=== PATIENT | male | born 1985 | race Caucasian/White ===

== ENCOUNTER 2020-05-08 10:28 | Day surgery (SDC) | payer BC ==
[~2020-05-08 10:28] MED LIST: Midazolam 1 MG/ML 2 ML SDV ONE; Propofol 200 MG/20 ML SDV ONE
[2020-05-08] MEDS ORDERED: Lactated Ringers 1,000 ML IV SCH (10:30)
[2020-05-08] MEDS ORDERED: Sodium Chloride 0.9% 10 ML Syringe FLUSH PRN (10:30)
[2020-05-08] MEDS ORDERED: Glycopyrrolate 0.2 MG/ML SDV ONE ×2 (12:04→12:24)
[2020-05-08] MEDS ORDERED: Propofol 200 MG/20 ML SDV ONE (12:24)
[2020-05-08] MEDS ORDERED: Midazolam 1 MG/ML 2 ML SDV ONE (12:24)
[2020-05-08] MEDS ORDERED: Lidocaine 2% 5 ML SDV ONE (12:24)
--- NOTE | 2020-05-08 12:25 | PCM.OPNOTE ---
- General Post-Op/Procedure Note Date of Surgery/Procedure: 05/08/20 Operative Procedure(s): EGD with Bx Findings: Normal Pre Op Diagnosis: Epigastric Abd pain Post-Op Diagnosis: Same Anesthesia Technique: MAC Primary Surgeon: Uday Mike Anesthesia Provider: Jasmine IRVIN in mLs: 0 Complications: None Condition: Good
--- NOTE | 2020-05-08 14:53 | OR ---
Date of Procedure: 05/08/2020 PREOPERATIVE DIAGNOSIS: Epigastric abdominal pain. POSTOPERATIVE DIAGNOSIS: Normal EGD. PROCEDURE: EGD with biopsy. ANESTHESIA: MAC. PROCEDURE IN DETAIL: Patient was brought to the procedure room where he was placed on his left side and IV sedation administered. Oral bite block was placed and the upper endoscope advanced into the esophagus under direct vision without difficulty. Vocal cords were viewed and were normal. Scope was advanced to the third portion of the duodenum. Duodenum and pylorus were normal. Antrum and body of the stomach were normal. Retroflexion reveals a normal-appearing fundus. Squamocolumnar junction is normal. There was no evidence of reflux esophagitis. I did take two biopsies from the antrum to check for Helicobacter pylori because of his symptoms. Air was removed from the stomach and the scope withdrawn through the remaining esophagus which appears normal. The patient tolerated the procedure well and returned to recovery in stable condition. I will have the patient remain on his omeprazole and contact him with the biopsy results when they return. BERTA BRENNAN MD /[id number]
== END 2020-05-08 13:35 | disposition home or self-care (01) ==
LOC: LL.SDS 10:28
PROVIDERS: ATTEND Surgery
DX: K31.89 Other diseases of stomach and duodenum (principal); J45.909 Unspecified asthma, uncomplicated; Z01.812 Encounter for preprocedural laboratory examination; Z98.890 Other specified postprocedural states; Z20.828 Contact with and (suspected) exposure to other viral communicable diseases
CPT/HCPCS: 00731; J2001; J2250; J2704; J3490; J7120; U0002

== ENCOUNTER 2021-07-20 09:00 | Emergency (ER) | payer BC ==
[2021-07-20] MEDS ORDERED: Sodium Chloride 0.9% 10 ML Syringe FLUSH PRN (09:14)
[2021-07-20] MEDS ORDERED: Sodium Chloride 0.9% 1,000 ML IV SCH ×2 (09:15→10:15)
--- NOTE | 2021-07-20 09:48 | EDM.PDOC ---
ED HPI GENERAL MEDICAL PROBLEM - General Chief Complaint: Respiratory Problem Stated Complaint: short of breath Time Seen by Provider: 07/20/21 09:00 Source of Information: Reports: Patient, Family History Limitations: Reports: No Limitations - History of Present Illness INITIAL COMMENTS - FREE TEXT/NARRATIVE: Patient presents to the ED for increasing shortness of breath. According to his spouse, he has a history of reactive airway disease and has nebulizers at home for this, has environmental allergies. He has been struggling with a sinus infection for a long time. Documented ct results of chronic sinusitis and possible polyps. Saw his PCP mid april to discuss this problem. had a covid test that was negative. He asked to be tested in the nares for MRSA as a po ssibility of his sinus problems. It was positive, he was started on Bactrim for 10 days. He was then started on another course of bactrim. He states he was doing ok, but still with sinus congestion and loss of smell chronically. In the last 24 hours he has become markedly short of breath, using his nebulizer more, has a headache and feels unwell. He is not vaccinated for influenza or covid 19. He did 4 albuterol nebulizers prior to coming, they did not help. O2 sats at triage were 85% on room air. - Related Data Allergies Allergy/AdvReac Type Severity Reaction Status Date / Time No Known Allergies Allergy Verified 07/20/21 09:01 Home Meds: Home Meds Albuterol [Proventil HFA] 2 puff INH Q4H PRN #1 ea 07/20/21 [Rx] Albuterol [Proventil Neb Soln] 1.25 mg NEB Q4HRRT #30 ml 07/20/21 [Rx] Albuterol [Ventolin HFA] 1 - 2 spray INH Q4HR PRN 07/20/21 [History] Azelastine HCl 2 spray NS BID 07/20/21 [History] Azithromycin 250 mg PO DAILY #4 tablet 07/20/21 [Rx] Doxycycline [Vibra-Tabs] 100 mg PO Q12HR #20 tab 07/20/21 [Rx] Fluticasone/Salmeterol [Advair 500-50] 1 puff INH BID 07/20/21 [History] Non-Formulary Medication [NF Drug] 1 tab PO BID 07/20/21 [History] predniSONE [Prednisone] 50 mg PO DAILY #5 tablet 07/20/21 [Rx] Past Medical History - Past Health History Medical/Surgical History: Denies Medical/Surgical History HEENT History: Reports: Sinusitis Respiratory History: Reports: Other (See Below) (reactive airway) Immunologic History: Reports: Other (See Below) (environmental allergies) - Past Surgical History GI Surgical History: Reports: EGD Social & Family History - Family History Family Medical History: No Pertinent Family History - Tobacco Use Tobacco Use Status *Q: Never Tobacco User - Caffeine Use Caffeine Use: Reports: Soda Other Caffeine Use: RARE - Alcohol Use Alcohol Use History: No Alcohol Use in Last Twelve Months: No - Recreational Drug Use Recreational Drug Use: No Drug Use in Last 12 Months: No - Living Situation & Occupation Living situation: Reports: with Spouse ED ROS GENERAL - Review of Systems Review Of Systems: See Below Constitutional: Reports: Weakness, Fatigue, Decreased Appetite (did not eat today) HEENT: Reports: Sinus Problem. Denies: Throat Pain, Throat Swelling Respiratory: Reports: Shortness of Breath, Cough Cardiovascular: Reports: Dyspnea on Exertion Endocrine: Reports: No Symptoms GI/Abdominal: Reports: No Symptoms. Denies: Abdominal Pain, Diarrhea, Nausea, Vomiting : Reports: No Symptoms Musculoskeletal: Reports: Muscle Pain Neurological: Reports: Headache Psychiatric: Reports: No Symptoms Hematologic/Lymphatic: Reports: No Symptoms ED EXAM, GENERAL - Physical Exam Exam: See Below Exam Limited By: Other (speaks in short sentences) General Appearance: Alert, Moderate Distress Eye Exam: Bilateral Eye: EOMI, Normal Inspection, PERRL Ears: Normal External Exam, Normal Canal, Hearing Grossly Normal, Normal TMs Nose: Normal Inspection, No Blood Throat/Mouth: Other (mild dr) Head: Atraumatic Neck: Normal Inspection, Supple, Non-Tender, Full Range of Motion Respiratory/Chest: Decreased Breath Sounds (bases), Other (increased work of breathing, speaks in short sentences). No: Crackles, Rales, Rhonchi, Wheezing Cardiovascular: No Edema, No JVD, No Murmur, Tachycardia (regular) Extremities: Normal Inspection, Normal Range of Motion, Non-Tender, No Pedal Edema Neurological: Alert, Oriented, CN II-XII Intact, Normal Cognition Psychiatric: Normal Affect #1 Interpretation EKG Date: 07/20/21 Time: 09:23 Rhythm: NSR Rate (Beats/Min): 109 (tachycardia) [place]: RAD-Right [place] Deviation ST-T: Other (consistent with early repolarization) QT: Normal [place]/PQ Interval: short, at 100 Comparison: NA - No Prior EKG Course - Vital Signs Last Recorded V/S: Last Vital Signs Temp Pulse Resp BP Pulse Ox 90 L 07/20/21 09:06 - Orders/Labs/Meds Orders: Active Orders 24 hr Category Date Time Status Cardiac Monitoring [RC] . DIRECTED Care 07/20/21 09:00 Active Oxygen Therapy [RC] ASDIRECTED Care 07/20/21 09:00 Active Peripheral IV Care [RC] . DIRECTED Care 07/20/21 09:14 Active Chest 2V [CR] Stat Exams 07/20/21 09:00 Taken PE Chest [Ang Chest] [CT] Stat Exams 07/20/21 10:04 Taken CULTURE BLOOD [BC] Stat Lab 07/20/21 09:20 Received CULTURE BLOOD [BC] Stat Lab 07/20/21 09:25 Received Sodium Chloride 0.9% [Normal Saline] 1,000 ml Med 07/20/21 09:15 Active IV ASDIRECTED Sodium Chloride 0.9% [Normal Saline] 1,000 ml Med 07/20/21 10:15 Active IV ASDIRECTED Sodium Chloride 0.9% [Saline Flush] Med 07/20/21 09:14 Active 10 ml FLUSH ASDIRECTED PRN cefTRIAXone [Rocephin] Med 07/20/21 11:45 Active 2 gm IVPUSH Q24H Blood Culture x2 Reflex Set [OM.PC] Stat Oth 07/20/21 09:00 Ordered Peripheral IV Insertion Adult [OM.PC] Routine Oth 07/20/21 09:14 Ordered Medication Orders Ceftriaxone Sodium (Ceftriaxone 2 Gm Vial) 2 gm IVPUSH Q24H ELE Last Admin: 07/20/21 11:49 Dose: 2 gm Documented by: ELOISA Sodium Chloride (Normal Saline) 1,000 mls @ 999 mls/hr IV ASDIRECTED ELE Last Infusion: 07/20/21 10:09 Dose: 999 mls/hr Documented by: Admin: 07/20/21 09:24 Dose: 500 mls/hr Documented by: ELOISA Sodium Chloride (Normal Saline) 1,000 mls @ 999 mls/hr IV ASDIRECTED ELE Last Admin: 07/20/21 11:49 Dose: 999 mls/hr Documented by: ELOISA Sodium Chloride (Sodium Chloride 0.9% 10 Ml Syringe) 10 ml FLUSH ASDIRECTED PRN PRN Reason: Keep Vein Open Labs: Laboratory Tests 07/20/21 07/20/21 07/20/21 Range/Units 09:20 09:20 09:25 WBC 12.3 H (4.0-10.2) K/uL RBC 5.90 H (4.33-5.41) M/uL Hgb 19.0 H* (13.1-16.8) g/dL Hct 53.9 H (39.0-49.0) % MCV 91.4 (84.0-98.0) fL MCH 32.2 (28.2-33.3) pg MCHC 35.3 (31.7-36.0) g/dL RDW 12.8 (11.2-14.1) % Plt Count 236 (150-350) K/uL Neut % (Auto) 81.2 H (45.0-80.0) % Lymph % (Auto) 7.7 L (10.0-50.0) % [place] % (Auto) 10.2 (2.0-14.0) % Eos % (Auto) 0.7 (0.0-5.0) % Baso % (Auto) 0.2 (0.0-2.0) % Neut # (Auto) 9.98 H (1.40-7.00) K/uL Lymph # (Auto) 0.94 (0.50-3.50) K/uL [place] # (Auto) 1.25 H (0.00-1.00) K/uL Eos # (Auto) 0.08 (0.00-0.50) K/uL Baso # (Auto) 0.02 (0.00-0.20) K/uL D-Dimer, Quantitative (0-400) ng/mL ABG pH (7.35-7.45) ABG pCO2 (35-45) mmHG ABG pO2 (80-105) mmHG ABG HCO3 (22-26) mmol/L ABG Total CO2 (23-27) mmol/L ABG O2 Saturation (95-98) % ABG Base Excess (-2-3) mmol/L O2 Delivery Device Sodium 140 (136-145) mmol/L Potassium 3.6 (3.5-5.1) mmol/L Chloride 103 (98-107) mmol/L Carbon Dioxide 23.4 (21.0-32.0) mmol/L Anion Gap 13.6 (7-15) meq/L BUN 17 (7-18) mg/dL Creatinine 1.43 H (0.51-1.17) mg/dL Est Cr Clr Drug Dosing TNP Estimated GFR (MDRD) 56 mL/min Glucose 126 H (70-99) mg/dL Lactic Acid 1.9 (0.4-2.0) mmol/L Calcium 9.2 (8.5-10.1) mg/dL Total Bilirubin 0.8 (0.2-1.0) mg/dL AST 26 (15-37) U/L ALT 33 (12-78) U/L Alkaline Phosphatase 116 (46-116) IU/L Troponin I High Sens 9 (<=76) ng/L C-Reactive Protein 1.2 H (<=0.9) mg/dL Total Protein 8.4 H (6.4-8.2) g/dL Albumin 4.0 (3.4-5.0) g/dL Influenza Type A RNA (NEGATIVE) RSV RNA (INAAT) (NEGATIVE) Influenza Type B RNA (NEGATIVE) SARS-CoV-2 RNA (CARRIE) (NEGATIVE) 07/20/21 07/20/21 07/20/21 Range/Units 09:25 09:27 10:30 WBC (4.0-10.2) K/uL RBC (4.33-5.41) M/uL Hgb (13.1-16.8) g/dL Hct (39.0-49.0) % MCV (84.0-98.0) fL MCH (28.2-33.3) pg MCHC (31.7-36.0) g/dL RDW (11.2-14.1) % Plt Count (150-350) K/uL Neut % (Auto) (45.0-80.0) % Lymph % (Auto) (10.0-50.0) % [place] % (Auto) (2.0-14.0) % Eos % (Auto) (0.0-5.0) % Baso % (Auto) (0.0-2.0) % Neut # (Auto) (1.40-7.00) K/uL Lymph # (Auto) (0.50-3.50) K/uL [place] # (Auto) (0.00-1.00) K/uL Eos # (Auto) (0.00-0.50) K/uL Baso # (Auto) (0.00-0.20) K/uL D-Dimer, Quantitative 797 H (0-400) ng/mL ABG pH 7.41 (7.35-7.45) ABG pCO2 31 L (35-45) mmHG ABG pO2 54 L* (80-105) mmHG ABG HCO3 19.2 L (22-26) mmol/L ABG Total CO2 20 L (23-27) mmol/L ABG O2 Saturation 89 L (95-98) % ABG Base Excess -4 L (-2-3) mmol/L O2 Delivery Device Nasal cannula Sodium (136-145) mmol/L Potassium (3.5-5.1) mmol/L Chloride (98-107) mmol/L Carbon Dioxide (21.0-32.0) mmol/L Anion Gap (7-15) meq/L BUN (7-18) mg/dL Creatinine (0.51-1.17) mg/dL Est Cr Clr Drug Dosing Estimated GFR (MDRD) mL/min Glucose (70-99) mg/dL Lactic Acid (0.4-2.0) mmol/L Calcium (8.5-10.1) mg/dL Total Bilirubin (0.2-1.0) mg/dL AST (15-37) U/L ALT (12-78) U/L Alkaline Phosphatase (46-116) IU/L Troponin I High Sens (<=76) ng/L C-Reactive Protein (<=0.9) mg/dL Total Protein (6.4-8.2) g/dL Albumin (3.4-5.0) g/dL Influenza Type A RNA Negative (NEGATIVE) RSV RNA (INAAT) Negative (NEGATIVE) Influenza Type B RNA Negative (NEGATIVE) SARS-CoV-2 RNA (CARRIE) Negative (NEGATIVE) Meds: Medications Generic Name Dose Route Start Last Admin Trade Name Freq PRN Reason Stop Dose Admin Ceftriaxone Sodium 2 gm 07/20/21 11:45 07/20/21 11:49 Ceftriaxone 2 Gm Vial IVPUSH 2 gm Q24H ELE Administration Sodium Chloride 1,000 mls @ 999 mls/hr 07/20/21 09:15 07/20/21 10:09 Normal Saline IV 999 mls/hr ASDIRECTED ELE Infusion Sodium Chloride 1,000 mls @ 999 mls/hr 07/20/21 10:15 07/20/21 11:49 Normal Saline IV 999 mls/hr ASDIRECTED ELE Administration Sodium Chloride 10 ml 07/20/21 09:14 Sodium Chloride 0.9% 10 Ml Syringe FLUSH ASDIRECTED PRN Keep Vein Open Discontinued Medications Generic Name Dose Route Start Last Admin Trade Name Freq PRN Reason Stop Dose Admin Azithromycin 500 mg 07/20/21 11:38 07/20/21 11:49 Azithromycin 250 Mg Tab PO 07/20/21 11:39 500 mg ONETIME ONE Administration Iopamidol 100 ml 07/20/21 10:06 07/20/21 10:26 Iopamidol 755 Mg/Ml 100 Ml Bottle IVPUSH 07/20/21 10:07 100 ml ONETIME STA Administration Methylprednisolone Sodium Succinate 125 mg 07/20/21 10:14 07/20/21 10:28 Methylprednisolone Sodium Succinate 125 Mg/2 Ml Sdv IVPUSH 07/20/21 10:15 125 mg ONETIME ONE Administration - Radiology Interpretation Free Text/Narrative:: no acute on chest x-ray, mild interstitial prominence. calcified nodules right upper lobe, likely related to old granulatomous disease. interpreted by radiology 11:29 Ct pe protocol chest with mild hilar, ediastinal lymphadenopathy more likely secondary to reactive inflammatory process over infiltrative or neoplastic process less likely unless history of lymphoma or primary carcinoma. follow up chest ct in 3 months. mild small airways inflammatory process, bronchiitis, bonchiolitis more likely from inflammatory infectious process versus less liekly reactive airways dis ease. - Re-Assessments/Exams Free Text/Narrative Re-Assessment/Exam: 07/20/21 09:59 concern for hypoxia in otherwise healthy individual. blood gas, blood cultures x 2, covid/rsv/flu, chest x-ray fluids started at 500 cc/hr blood gas was a venous sample. Ph is normal will attempt a arterial gas. 07/20/21 10:10 he is hemoconcentrated, hemoglobin is 19, does not smoke. no history of blood dyscrasia. Will increase fluid rate to 1000 cc/hr, second liter ordered. Ct pe protocol ordered due to elevated ddimer. awaiting viral testing. 07/20/21 10:20 viral panel negative. Will await the CT, IV steroids ordered,. normal lactic, minimal crp elevation. 07/20/21 11:16 after patient back fromMD, abg done on room air, Po2 54. , sats are 90% at rest. Will allow to sit without oxygen as long as stay at 90. will ambulate after results 07/20/21 11:[address] findings with patient and . need for [address] collow up, discussed etiologies of viral, infectious or neoplastic process causing the lymphadenopathy. WBC differential is not supportive of lymphoma at this time. will ambulate to see heart rate and oxygen. 07/20/21 11:49 heart rate up to 103. O2 up to 94%. Patient complains that he does not " feel" like his oxygen is that high. Discussed possible outpatient treatment with azithromycin, doxycyline, prednisone, albuterol and duoneb. I did discuss the concern for his blood dyscrasia with elevated hemoglobin, ddimer, low Po2 and hilar lymphadenopathy and need for further work up. Did offer admission for IV antibiotics, full pulmonary toilet based on his Po2. Will give azithromycin 500 mg Po and rocpehin 2 grams IV and discuss with his when she returns. 07/20/21 13:00 did discuss home. Will try it, see discharge instructions. invited to return at any time if worsening. Departure - Departure Time of Disposition: 12:37 Disposition: Home, Self-Care 01 Condition: Fair Clinical Impression: Acute respiratory failure with hypoxia, Elevated hemoglobin, Leukocytosis, Lymphadenitis, Bronchitis - Discharge Information *PRESCRIPTION DRUG MONITORING PROGRAM REVIEWED*: Not Applicable *COPY OF PRESCRIPTION DRUG MONITORING REPORT IN PATIENT TIERA: Not Applicable Prescriptions: Azithromycin 250 mg PO DAILY #4 tablet predniSONE [Prednisone] 50 mg PO DAILY #5 tablet Albuterol [Proventil HFA] 2 puff INH Q4H PRN #1 ea PRN Reason: Dyspnea Albuterol [Proventil Neb Soln] 1.25 mg NEB Q4HRRT #30 ml Doxycycline [Vibra-Tabs] 100 mg PO Q12HR #20 tab Instructions: Upper Respiratory Infection, Adult, [id number], Leukocytosis, Lymphadenopathy, Acute Bronchitis, Adult, [id number] Referrals: Hyacinth Farris DATA OPERATIONS DIRECTOR [Primary Care Provider] - Forms: ED Department Discharge Additional Instructions: You were negative for pneumonia, covid 19, influenza, rsv, blood clot. You were found to have elevated hemoglobin and treated this with IV fluids. Try to stay well hydrated. this should be rechecked in the next week Hemoglobin was 19. If this does not change, follow up for deeper investigation with PCP or hematology You were found to have minimally elevated white blood cell count at 12.3. Ct scan did reveal inflammation of the bronchi, so you are being treated for bronchitis with IV solu medrol (steroid), IV rocephin and oral azithromycin ( antibiotics.). You are prescribed prednisone 50 mg daily x 5 days, azithromycin 250 mg daily for 4 days and doxycycline 100 mg twice a day for 10 days. Start this tomorrow. Stop the bactrim. ( TMP/sulfa) You are given more albuterol nebs, do this every 4 hours as needed for shortness of breath. You are also given inhalers to have if needed. You are given duoneb ( ipatropium with albuterol). Alternate this medication with the albuterol nebs every 4 hours. Use the plain albuterol for rescue. You are given an incentive spirometer. use this 10 repetitions every hour while awake . You have enlargened lymphnodes in the chest that could be due to the bronchitis but repeat chest ct in three months was suggested to make sure they are not something else. Your blood gas did have a low oxygen level, however at rest you are maintaining oxygen above 90% and when ambulating you maintain above 90%. If you start to feel more short of breath, have increased work of breathing at rest and are unable to talk in full sentences, call 911 or return to the ED. Go home and limit all strenuous activity for the next two days. Follow up closely with PCP. Consultation with pulmonology is suggested. Sepsis Event Note (ED) - Focused Exam Vital Signs: Vital Signs Pulse Ox Pulse Ox 07/20/21 09:06 90 L 07/20/21 09:03 85 L 07/20/21 09:00 91 L - My Orders Last 24 Hours: My Active Orders 07/20/21 09:00 Cardiac Monitoring [RC] . DIRECTED Oxygen Therapy [RC] ASDIRECTED Chest 2V [CR] Stat Blood Culture x2 Reflex Set [OM.PC] Stat 07/20/21 09:14 Peripheral IV Care [RC] . DIRECTED Sodium Chloride 0.9% [Saline Flush] 10 ml FLUSH ASDIRECTED PRN Peripheral IV Insertion Adult [OM.PC] Routine 07/20/21 09:15 Sodium Chloride 0.9% [Normal Saline] 1,000 ml IV ASDIRECTED 07/20/21 09:20 CULTURE BLOOD [BC] Stat 07/20/21 09:25 CULTURE BLOOD [BC] Stat 07/20/21 10:04 PE Chest [Ang Chest] [CT] Stat 07/20/21 10:15 Sodium Chloride 0.9% [Normal Saline] 1,000 ml IV ASDIRECTED 07/20/21 11:45 cefTRIAXone [Rocephin] 2 gm IVPUSH Q24H - Assessment/Plan Last 24 Hours: My Active Orders 07/20/21 09:00 Cardiac Monitoring [RC] . DIRECTED Oxygen Therapy [RC] ASDIRECTED Chest 2V [CR] Stat Blood Culture x2 Reflex Set [OM.PC] Stat 07/20/21 09:14 Peripheral IV Care [RC] . DIRECTED Sodium Chloride 0.9% [Saline Flush] 10 ml FLUSH ASDIRECTED PRN Peripheral IV Insertion Adult [OM.PC] Routine 07/20/21 09:15 Sodium Chloride 0.9% [Normal Saline] 1,000 ml IV ASDIRECTED 07/20/21 09:20 CULTURE BLOOD [BC] Stat 07/20/21 09:25 CULTURE BLOOD [BC] Stat 07/20/21 10:04 PE Chest [Ang Chest] [CT] Stat 07/20/21 10:15 Sodium Chloride 0.9% [Normal Saline] 1,000 ml IV ASDIRECTED 07/20/21 11:45 cefTRIAXone [Rocephin] 2 gm IVPUSH Q24H
[2021-07-20 09:50] LABS: ANION GAP 13.6 meq/L (7-15); CHLORIDE,CL 103 mmol/L (98-107); SODIUM,NA 140 mmol/L (136-145)
[2021-07-20] MEDS ORDERED: Iopamidol 755 Mg/ML 100 ML Bottle IVPUSH STA (10:06)
[2021-07-20 10:12] LABS: CORONAVIRUS COVID-19 NAA NEGATIVE (NEGATIVE); RESPIRATORY SYNCYTIAL VIR NAA NEGATIVE (NEGATIVE)
[2021-07-20] MEDS ORDERED: methylPREDNISolone Sodium Succinate 125 MG/2 ML SDV IVPUSH ONE (10:14)
[2021-07-20 10:37] LABS: O2 DELIVERY DEVICE NASAL CANNULA; PCO2 ARTERIAL 31 mmHG (35-45)
[2021-07-20 10:39] LABS: BASE EXCESS ARTERIAL -4 mmol/L (-2-3); BICARBONATE,ARTERIAL 19.2 mmol/L (22-26); O2 SATURATION ARTERIAL 89 % (95-98); PO2 ARTERIAL 54 mmHG (80-105)
[2021-07-20] MEDS ORDERED: Azithromycin 250 MG Tab PO ONE (11:38)
[2021-07-20] MEDS ORDERED: cefTRIAXone 2 GM Vial IVPUSH SCH (11:45)
== END 2021-07-20 13:20 | disposition home or self-care (01) ==
LOC: LL.ED 09:00
DX: J40 Bronchitis, not specified as acute or chronic (principal); J96.01 Acute respiratory failure with hypoxia; I88.9 Nonspecific lymphadenitis, unspecified; D72.829 Elevated white blood cell count, unspecified; R71.8 Other abnormality of red blood cells; Z20.822 Contact with and (suspected) exposure to COVID-19
CPT/HCPCS: 0241U; 36415; 36600; 71046; 71275; 80053; 82803; 83605; 84484; 85025; 85379; 86140; 87040; 93005; 94761; 96365; 96375; 99285; A9270; J0696; J2930; J7030; Q9967